=== PATIENT | male | born 1940 | race Caucasian/White ===

== ENCOUNTER 2018-05-25 10:46 | Emergency (ER) | payer MEDICARE, OTHER ==
[2018-05-25 10:53] VITALS: BP 139/65; PULSE 66; TEMP 98.3; BMI 27.9
--- NOTE | 2018-05-25 11:35 | PDOC ---
History of Present Illness - General Chief Complaint: Redness To Affected Area Stated Complaint: LT LEG PAIN Time Seen by Provider: 05/25/18 11:28 History Source: Patient, Spouse Exam Limitations: No Limitations (L ankle redness X 3 weeks) - History of Present Illness Associated Symptoms: denies: fever/chills Past History - Travel Traveled outside of the country in the last 30 days: No Close contact w/someone who was outside of country & ill: No - Past Medical History Allergies/Adverse Reactions: Allergies Allergy/AdvReac Type Severity Reaction Status Date / Time No Known Allergies Allergy Verified 05/25/18 10:51 Home Medications: Ambulatory Orders Aspirin [ASA -] 81 mg PO DAILY 05/25/18 Atorvastatin Ca [Lipitor] 40 mg PO HS 05/25/18 Cephalexin [Keflex] 500 mg PO BID 7 Days #14 capsule 05/25/18 Famotidine 20 mg PO BID 05/25/18 Finasteride [Proscar -] 5 mg PO DAILY 05/25/18 Tamsulosin HCl 0.4 mg PO DAILY 05/25/18 COPD: No HTN: Yes Hypercholesterolemia: Yes - Suicide/Smoking/Psychosocial Hx Smoking History: Never smoked Review of Systems - Review of Systems Is the patient limited Slovak proficient: No Constitutional: No: Chills, Fever Musculoskeletal: No: Joint Pain, Joint Swelling Integumentary: Yes: Erythema, Pruritus. No: Dryness, Lesions, Rash *Physical Exam - Vital Signs Last Vital Signs Temp Pulse Resp BP Pulse Ox 98.3 F 66 18 139/65 100 05/25/18 10:52 05/25/18 10:52 05/25/18 10:52 05/25/18 10:52 05/25/18 10:52 - Physical Exam General Appearance: Yes: Nourished Respiratory/Chest: positive: Lungs Clear, Normal Breath Sounds Cardiovascular: positive: Regular Rhythm, Regular Rate, S1, S2 Extremity: positive: Normal Capillary Refill, Normal Inspection, Normal Range of Motion, Erythema (L ankle: + erythema, + scab area in medial malleous extending to 3cm above joint, no pus or warmth noted, distal pulse intact, FROM in joint). negative: Swelling, Calf Tenderness Neurologic: positive: sander operator II-XII NML intact, Fully Oriented, Alert Medical Decision Making - Medical Decision Making 05/25/18 11:31 L ankle redness X 3wks after manipulating a scap in his leg, pt denies charlie, denies f/c, last tetanus in Nov, non diabetic exam with redness in medial aspect of ankle, distal pulse intact, no warmth abx, wound check in 2 day 05/25/18 16:20 *DC/Admit/Observation/Transfer Diagnosis at time of Disposition: Cellulitis Qualifiers: Site of cellulitis: extremity Site of cellulitis of extremity: lower extremity Laterality: left Qualified Code(s): L03.116 - Cellulitis of left lower limb - Discharge Dispostion Disposition: HOME Condition at time of disposition: Stable Decision to Admit order: No - Prescriptions Prescriptions: Cephalexin [Keflex] 500 mg PO BID 7 Days #14 capsule - Referrals Referrals: ON STAFF,NOT [Primary Care Provider] - - Patient Instructions Printed Discharge Instructions: Cellulitis Additional Instructions: Please follow up with your primary care doctor for a wound check in 2-3 days Return to the Emergency Department if worsening redness occurs - Post Discharge Activity
== END 2018-05-25 11:53 | disposition home or self-care (01) ==
LOC: JERFT 10:46
DX: L03.116 Cellulitis of left lower limb (principal); E78.00 Pure hypercholesterolemia, unspecified; I10 Essential (primary) hypertension
CPT/HCPCS: 99281-25

== ENCOUNTER 2019-04-18 11:55 | Emergency (ER) | payer MEDICARE, OTHER ==
[2019-04-18 12:25] VITALS: BP 108/48; PULSE 55; TEMP 98; BMI 27.9
--- NOTE | 2019-04-18 12:50 | PDOC ---
History of Present Illness - General Chief Complaint: Injury Stated Complaint: FALL Time Seen by Provider: 04/18/19 12:39 - History of Present Illness Initial Comments: 04/18/19 12:48 78-year-old male with a past medical history of BPH hypertension and dyslipidemia presents for evaluation of fall. Patient fell 5 days ago he slipped and hit the back of his head. Since that time is had a headache dizziness no nausea or vomiting Past History - Past Medical History Allergies/Adverse Reactions: Allergies Allergy/AdvReac Type Severity Reaction Status Date / Time No Known Allergies Allergy Verified 04/18/19 12:19 Home Medications: Ambulatory Orders Aspirin [ASA -] 81 mg PO DAILY 05/25/18 Atorvastatin Ca [Lipitor] 40 mg PO HS 05/25/18 Cephalexin [Keflex] 500 mg PO BID 7 Days #14 capsule 05/25/18 Famotidine 20 mg PO BID 05/25/18 Finasteride [Proscar -] 5 mg PO DAILY 05/25/18 Tamsulosin HCl 0.4 mg PO DAILY 05/25/18 COPD: No HTN: Yes Hypercholesterolemia: Yes - Psycho Social/Smoking Cessation Hx Smoking History: Never smoked Have you smoked in the past 12 months: No Hx Alcohol Use: No Drug/Substance Use Hx: No Review of Systems - Review of Systems ABD/GI: No: Nausea, Vomiting Neurological: Yes: Headache, Dizziness *Physical Exam - Vital Signs Last Vital Signs Temp Pulse Resp BP Pulse Ox 98 F 55 L 18 108/48 L 98 04/18/19 12:19 04/18/19 12:19 04/18/19 12:19 04/18/19 12:19 04/18/19 12:19 - Physical Exam 04/18/19 12:49 GENERAL: The patient is awake, alert, and fully oriented, in no acute distress. HEAD: Normal with no signs of trauma. EYES: sclera anicteric, conjunctiva clear. ENT: Ears normal tympanic membranes normal oropharynx clear uvula midline NECK: Normal range of motion LUNGS: Breath sounds equal, clear to auscultation bilaterally. No wheezes, and no crackles. HEART: S1 and S2 without murmur, rub or gallop. ABDOMEN: Soft, nontender, normoactive bowel sounds. No guarding, no rebound. No masses. EXTREMITIES: Normal range of motion, no edema. No clubbing or cyanosis. No cords, erythema, or tenderness. NEUROLOGICAL: Cranial nerves II through XII grossly intact. PSYCH: Normal mood, normal affect. SKIN: Warm, Dry, normal turgor, no rashes or lesions noted. ED Treatment Course - RADIOLOGY Radiology Studies Ordered: Category Date Time Status HEAD CT WITHOUT CONTRAST [CT] Stat CT Scan 04/18/19 12:48 Ordered Medical Decision Making - Medical Decision Making 04/18/19 13:44 Negative CAT scan for intracranial process. Follow-up with neurology for postconcussion symptoms and orthopedic surgery for joint pain specifically the left shoulder Discharge - Discharge Information Problems reviewed: Yes Clinical Impression/Diagnosis: Left shoulder strain, Post concussion syndrome Condition: Stable Disposition: HOME - Admission No - Follow up/Referral Referrals: Danny Magallon MD [Staff Physician] - Ranulfo Giraldo DO [Staff Physician] - - Patient Discharge Instructions Additional Instructions: Continue medication as directed. Without fail follow-up with both orthopedic surgery and neurology for further evaluation and treatment options. No strenuous activity until cleared by neurology. Return to the emergency room for further issues. - Post Discharge Activity
== END 2019-04-18 13:50 | disposition home or self-care (01) ==
LOC: JERFT 11:55
DX: G44.309 Post-traumatic headache, unspecified, not intractable (principal); F07.81 Postconcussional syndrome; S46.912A Strain of unspecified muscle, fascia and tendon at shoulder and upper arm level, left arm, initial encounter; W19.XXXA Unspecified fall, initial encounter; Y93.89 Activity, other specified; Y92.89 Other specified places as the place of occurrence of the external cause; Y99.8 Other external cause status; I10 Essential (primary) hypertension; E78.5 Hyperlipidemia, unspecified; N40.0 Benign prostatic hyperplasia without lower urinary tract symptoms
CPT/HCPCS: 70450-TC; 99284-25